=== PATIENT | male | born 1950 | race Caucasian/White ===

== ENCOUNTER 2016-11-10 06:34 | Emergency (ER) | payer OTHER ==
[~2016-11-10] VITALS: Ht 175.3 cm; Wt 5.9 kg
[~2016-11-10 06:34] MED LIST: AUGMENTIN 875-1 EACH PO; Amaryl; BACTRIM DS TAB1 EACH PO; Diovan; Ecotrin; Furosemide; GABAPENTIN100 M2 PO; GLUCOPHAGE850 M2 PO; GLUCOPHAGE850 MG PO; HUMALOG KW100 UNIT/1 SC; HYDROMORPHONE HC2 M1 PO; KEFLEX500 M1 PO; LANTUS SOL100 UNIT/1 SC; LANTUS SOLOS100 U/ML SC; LOVASTATIN40 MG PO; METFORMIN HCL850 M1 PO; METOPROLOL SUC100 M1 PO; METOPROLOL SUCC50 M1 PO; POLYTRIM O200 GTT/BO OPH; TOPROL XL100 M1 PO; VICODIN5-300 PO; [UNRECOGNIZED DRUG - OTHER]
[2016-11-10] MEDS ORDERED: LASIX20 M1 PO (07:18)
[2016-11-10] MEDS ORDERED: LOVASTATIN20 M1 PO (07:19)
--- NOTE | 2016-11-10 07:35 | ED AMS/SEIZURE/WEAK/DIZZY ---
History of Present Illness General Chief Complaint: Dizziness Stated Complaint: DIZZINESS, RODRIGUEZ Source: patient Exam Limitations: no limitations Vital Signs & Intake/Output Vital Signs & Intake/Output Vital Signs Date Time Temp Pulse Resp B/P B/P Pulse O2 O2 Flow FiO2 Mean Ox Delivery Rate 11/10 0820 98.1 68 18 122/67 98 Room Air 11/10 0700 96 Room Air 11/10 0654 97.2 66 16 145/72 96 Room Air Allergies Coded Allergies: cat dander (ITCHY, SNEEZING 08/14/15) shellfish derived (11/15/15) Reconcile Medications [Amaryl] (Reported) Amoxicillin/Potassium Clav (Augmentin 875-125 Tablet) 1 EACH TABLET 1 TAB PO BID cellulitis Take one this evening and then every 12 hours [Diovan] (Reported) [Ecotrin] (Reported) [Furosemide] (Reported) Furosemide (Lasix) 20 MG TABLET 1 TAB PO DAILY WATER (Reported) Gabapentin 100 MG CAPSULE 100 MG PO Q8 diabetic neuropathy Hydromorphone HCl 2 MG TABLET 2 MG PO Q6P PRN PAIN SCALE 7-10 Take it when you are in really severe pain Insulin Glargine,Hum.rec.anlog (Lantus Solostar) 100 UNIT/1 ML INSULN.PEN 20 UNIT SC QPM DIABETES Reason to Stop at ADM: ON LEVEMIR Insulin Lispro (Humalog Kwikpen U-100) 100 UNIT/1 ML INSULN.PEN 0 SC SEE SLIDING SCALE DIABETES (Reported) Before meal blood sugars: 80-150: no insulin 151-200: 4 units 201-250: 6 units 251-300: 8 units 301-350: 10 units 351-400: 12 units More than 400: 14 units and call your doctor Lovastatin 20 MG TABLET 1 TAB PO DAILY CHOLESTEROL (Reported) Metformin HCl 850 MG TABLET 1 TAB PO BID DIABETES (Reported) NOT GIVEN IN HOSPITAL Metoprolol Succ XL (Toprol XL) 100 MG TAB.ER.24H 1.5 TAB PO DAILY HEART HEALTH (Reported) [Mevaco] (Reported) Triage Note: 66 YEAR OLD MALE, STATES THAT SINCE SUNDAY HE HAS BEEN HAVING EPISODES OF DIZZINESS WHEN HE CHANGES POSITION, CAME IN THIS AM DUE TO HE WAS UNABLE TO LAY DOWN LAST NIGHT DUE TO THE DIZZINESS, STATES THAT HE FEELS OK THIS AM BUT LAST PM HE VOMITTED DUE TO THE DIZZINESS, STATES THAT HE HAD WATER IN HIS EAR 15 YEARS AGO AND HE HAD THE SAME PROBLEM, DENIES CP/SOB Triage Nurses Notes Reviewed? yes Onset: yesterday Duration: hour(s):, continues in ED, intermittent Severity: severe HPI: Patient presents for evaluation of severe spinning dizziness that began abruptly yesterday. Patient states he becomes diaphoretic and nauseous. He vomited at least once. He states he's had this once before many years ago. He denies any fever or cold symptoms or head trauma. He states he has had tinnitus for years without acute change. In addition he has had hearing loss without acute change. Past History Travel History Traveled to [place] past 21 day No Medical History Any Pertinent Medical History? 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 No Review of Systems Review of Systems Constitutional: Reports: no symptoms. EENTM: Reports: see HPI. Respiratory: Reports: no symptoms. Cardiovascular: Reports: no symptoms. GI: Reports: no symptoms. Genitourinary: Reports: no symptoms. Musculoskeletal: Reports: no symptoms. Skin: Reports: no symptoms. Neurological/Psychological: Reports: no symptoms. Hematologic/Endocrine: Reports: no symptoms. Immunologic/Allergic: Reports: no symptoms. All Other Systems: Reviewed and Negative Physical Exam Physical Exam General Appearance: see below Comments: Gen.: Well-nourished, well-developed, no acute respiratory distress. Head: Normocephalic, atraumatic. Eyes: Normal inspection bilaterally, no nystagmus, no Hallpike Ears: Normal inspection bilaterally Nose: Normal inspection Throat/mouth : Moist mucosa Neck: Supple, full range of motion, no goiter, no carotid bruits Heart: Regular rate and rhythm, no murmurs rubs or gallops Lungs: Clear to auscultation bilaterally with normal air entry Chest: Nontender Back: Normal range of motion Abdomen: Soft, nontender, nondistended, normal bowel sounds Extremities: Normal range of motion grossly, equal radial pulses, no cyanosis clubbing or edema Neurologic: Cranial nerves 2 through 12 intact, speech is clear Skin: warm and dry Psychiatric: Calm, cooperative, no apparent delusions or hallucinations Core Measures ACS in differential dx? No CVA/TIA Diagnosis: No Severe Sepsis Present: No Septic Shock Present: No Progress Differential Diagnosis: arrythmia, anemia, CVA/stroke, dehydration, hypoglycemia , hypoxia, labrynthitis, Meniere's disease Plan of Care: Orders Procedure Date/time Status MISTAKE 11/10 733 Active CBC WITHOUT DIFFERENTIAL 11/10 733 Complete BASIC METABOLIC PANEL 11/10 733 Complete EKG 11/10 733 Active Laboratory Tests 11/10/16 0747: Anion Gap 12, Estimated GFR > 60, BUN/Creatinine Ratio 33.3 H, Glucose 185 H, Calcium 9.3, CBC w Diff NO MAN DIFF REQ, RBC 4.95, MCV 94.2 H, MCH 30.8, RDW 14.2, MPV 8.8, Gran % 68.2, Lymphocytes % 23.5, Monocytes % 6.7, Eosinophils % 1.2, Basophils % 0.4, Absolute Granulocytes 7.4 H, Absolute Lymphocytes 2.5, Absolute Monocytes 0.7 H, Absolute Eosinophils 0.1, Absolute Basophils 0, PUBS MCHC 32.7 L Initial ED EKG: NSR, rate (73), LVH Prior EKG: unchanged Comments: No evidence of central vertigo. No evidence of systemic cause of vertigo. Symptoms consistent with peripheral vertigo. 11/10/2016 9:03:13 AM I have updated Manoj on his test results. He is amenable to treatment with meclizine and follow up with his primary care physician. Departure Departure Disposition: HOME OR SELF CARE Condition: Stable Clinical Impression Primary Impression: Vertigo Referrals: KAYLEN FOREMAN DO (PCP/Family) Additional Instructions: Meclizine as prescribed for your vertigo symptoms. Maintain a good fluid intake and strict diabetic diet (your blood glucose is a little elevated this morning). Continue your current medications. Follow-up with your primary care physician on Sunday for reevaluation. Return if any concerns or sudden worsening. Thank you for choosing the [facility] Emergency Department for your care. It was a pleasure to serve you today. Richard Andersen M.D. [facility] Departure Forms: Customer Survey General Discharge Information RELEASE- WORK
[2016-11-10 07:54] LABS: ABSOLUTE BASOPHIL COUNT 0 /CUMM (0.0-0.2); ABSOLUTE EOSINOPHIL COUNT 0.1 /CUMM (0.0-0.7); ABSOLUTE GRANULOCYTE CT 7.4 /CUMM (1.4-6.5); ABSOLUTE LYMPH COUNT 2.5 /CUMM (1.2-3.4); ABSOLUTE MONOCYTE COUNT 0.7 /CUMM (0.10-0.60); BASOPHIL % 0.4 % (0.0-2.0); EOSINOPHIL % 1.2 % (0-5); GRANULOCYTE % 68.2 % (42.2-75.2); HEMATOCRIT 46.6 % (42-52); MEAN CORPUSCULAR HGB 30.8 PG (27.0-31.0); MEAN CORPUSCULAR HGB CONC 32.7 G/DL (33.0-37.0); MEAN CORPUSCULAR VOLUME 94.2 FL (80.0-94.0); MEAN PLATELET VOLUME 8.8 FL (7.4-10.4); PLATELET COUNT 288 /CUMM (130-400); RBC DISTRIBUTION WIDTH 14.2 % (11.5-14.5); RED BLOOD CELL CT 4.95 /CUMM (4.70-6.10); WHITE BLOOD CELL COUNT 10.9 /CUMM (4.8-10.8)
[2016-11-10 08:20] VITALS: BP 122/67
[2016-11-10] MEDS ORDERED: MECLIZINE HCL25 MG PO (09:06)
== END 2016-11-10 09:09 ==
LOC: ERH 06:34
PROVIDERS: Emergency Medicine
DX: R42 Dizziness and giddiness (principal)
CPT/HCPCS: 93005; 93010

== ENCOUNTER 2017-10-25 09:52 | Emergency (ER) | payer OTHER ==
[~2017-10-25] VITALS: Ht 175.3 cm; Wt 88.0 kg
[~2017-10-25 09:52] MED LIST changes: +ASPIRIN81 M4 PO; +CIPRO250 M1 PO; +GABAPENTIN300 M2 PO; +JARDIANCE10 M1 PO; +JARDIANCE25 M1 PO; +LASIX20 M1 PO; +LOVASTATIN20 M1 PO; +MECLIZINE HCL25 MG PO; -TOPROL XL100 M1 PO; +TOPROL XL200 M1 PO; +VALSARTAN80 M1 PO; +ZOFRAN ODT4 M1 SL; -[UNRECOGNIZED DRUG - OTHER]
[2017-10-25 09:59] VITALS: BP 142/87
--- NOTE | 2017-10-25 11:38 | ED AMS/SEIZURE/WEAK/DIZZY ---
History of Present Illness General Chief Complaint: Animal/Insect Bite Stated Complaint: ?TICK BITE Source: patient Exam Limitations: no limitations Vital Signs & Intake/Output Vital Signs & Intake/Output Vital Signs Date Time Temp Pulse Resp B/P B/P Pulse O2 O2 Flow FiO2 Mean Ox Delivery Rate 10/25 0959 97.0 64 18 142/87 99 Room Air Allergies Coded Allergies: cat dander (ITCHY, SNEEZING 08/14/15) shellfish derived (11/15/15) Reconcile Medications Aspirin (Aspirin*) 81 MG TAB.CHEW 1 TAB PO DAILY HEART HEALTH (Reported) Empagliflozin (Jardiance) 25 MG TABLET 1 TAB PO DAILY DIABETES (Reported) Furosemide (Lasix) 20 MG TABLET 1 TAB PO DAILY WATER (Reported) Gabapentin 300 MG CAPSULE 1 CAP PO TID NEUROPATHY (Reported) Insulin Glargine,Hum.rec.anlog (Lantus Solostar) 100 UNIT/1 ML INSULN.PEN 20 UNIT SC QPM DIABETES Reason to Stop at ADM: ON LEVEMIR Insulin Lispro (Humalog Kwikpen U-100) 100 UNIT/1 ML INSULN.PEN 0 SC SEE SLIDING SCALE DIABETES (Reported) Before meal blood sugars: 80-150: no insulin 151-200: 4 units 201-250: 6 units 251-300: 8 units 301-350: 10 units 351-400: 12 units More than 400: 14 units and call your doctor Lovastatin 20 MG TABLET 1 TAB PO DAILY CHOLESTEROL (Reported) Meclizine HCl 25 MG TABLET 1 TAB PO TIDPRN dizziness Metformin HCl 850 MG TABLET 1 TAB PO BID DIABETES (Reported) NOT GIVEN IN HOSPITAL Metoprolol Succinate (Toprol XL) 200 MG TAB.ER.24H 1 TAB PO DAILY HEART ( Reported) Ondansetron (Zofran Odt) 4 MG TAB.RAPDIS 1 TAB SL TID nausea Scopolamine 1 MG/3 DAY PATCH.TD.3 1 PATCH TOP AD VERTIGO Valsartan 80 MG TABLET 1 TAB PO DAILY HTN (Reported) Triage Note: PT TO ER C/C ECCHYMOTIC APPEARING AREA WITH CENTRAL CLEARING TO LEFT FOREARM. PT WAS SEEN IN ER ON SUNDAY WITH VERTIGO S/S WHICH PERSIST DESPITE TAKING MECLIZINE. ?TICK BITE. Triage Nurses Notes Reviewed? yes Onset: Abrupt Duration: day(s): Timing: recent history Injury Environment: home No Modifying Factors: none HPI: 67-year-old male comes into the emergency room for further evaluation of bug bite to his left wrist. Patient reports she was seen here the other day for vertigo and still having some residual dizziness. Feel that the room spins around at times. Patient had a full evaluation with EKG blood work and CT scan of head. Patient reports that those symptoms have began on Sunday of last week which was 6 days ago. That night he noticed a bite on his left wrist. He denies pulling any tick off. Comes in for further evaluation primarily of the bite. There is no redness or discharge fever chills. (Rebel Forde) Past History Travel History Traveled to [place] past 21 day No Medical History Any Pertinent Medical History? 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 No (Rebel Forde) Review of Systems Review of Systems Constitutional: Reports: no symptoms. EENTM: Reports: no symptoms. Respiratory: Reports: no symptoms. Cardiovascular: Reports: no symptoms. GI: Reports: no symptoms. Genitourinary: Reports: no symptoms. Musculoskeletal: Reports: no symptoms. Skin: Reports: see HPI. Neurological/Psychological: Reports: no symptoms. Hematologic/Endocrine: Reports: no symptoms. Immunologic/Allergic: Reports: no symptoms. All Other Systems: Reviewed and Negative (Rebel Forde) Physical Exam Physical Exam General Appearance: well developed/nourished, alert, awake Head: atraumatic, normal appearance Eyes: Bilateral: normal appearance, EOMI. Ears, Nose, Throat: normal ENT inspection, hearing grossly normal Neck: normal inspection Respiratory: normal breath sounds, no respiratory distress Peripheral Pulses: 2+ radial (R) (Regular) Back: normal inspection Extremities: normal range of motion, small area of umbilication on left wrist Neurologic/Psych: awake, alert, oriented x 3 Skin: intact, normal color Core Measures ACS in differential dx? No CVA/TIA Diagnosis No Sepsis Present: No Sepsis Focused Exam Completed? No (Rebel Forde) Progress Differential Diagnosis: benign positional vertigo, CVA/stroke, encephalitis, tick bite, bug bite, salines, Plan of Care: Current Medications Sig/Aida Start time Last Medication Dose Stop Time Status Admin Scopolamine HBr 1 PAT ONE ONE 10/25 1145 UNVr (Trans Derm Scop) 10/25 1146 Initial ED EKG: none Comments: 10/25/2017 1:17:02 PM There is no visible tic that was removed with the patient reports. No signs of infection on the wrist. Patient has a small area with umbilication indicating potential bite. No antibiotics needed. Patient was prescribed scopolamine patch for persistent dizziness and told to maple products supervisor [id number] lipoflavanoid. Patient was told to follow-up with ear nose and throat doctor that was provided on previous visit. (Rebel Forde) Departure Departure Disposition: HOME OR SELF CARE Condition: Stable Clinical Impression Primary Impression: Bug bite Secondary Impressions: Vertigo Referrals: Lovely Zamudio DO (PCP/Family) Caden HARRIS,David Pereira Additional Instructions: Take scopolamine patch as prescribed. taxi driver supervisor [id number] LIOPFLAVANOID. Follow-up with ear nose and throat doctor. If you want to be tested for Lyme disease follow-up with your primary care doctor for a Lyme titer in 4 weeks. Please go over all results of today's visit with your primary care doctor. Contact your primary care doctor to let them know you were here in the emergency room. There may be nonspecific findings which may not be related to your visit today here in the emergency room but may require further evaluation and chronic monitoring by your primary care doctor. If you had a laceration today the chance of foreign body always remains. You should follow-up with your primary care doctor for recheck in 3-5 days for a wound check. If you had an x-ray done there is a chance that a fracture could have been missed on initial read and you should follow-up with your primary care doctor for repeat x-rays if symptoms persist. If your blood pressure was elevated here in the emergency room please have rechecked by our primary care doctor within the next 48. If you were prescribed a narcotic here in the emergency room or any type of controlled substances you're not allowed to drive while taking this medication or operate any type of heavy machinery. Narcotics can make you feel lightheaded dizziness nausea and can cause constipation. You may need to maple products supervisor a stool softener. Thank you for choosing [facility] emergency room. Please return to the emergency room immediately if you have any other concerns worsening of symptoms. Departure Forms: Customer Survey General Discharge Information Prescriptions: Current Visit Scripts Scopolamine 1 PATCH TOP AD #3 PATCH (Rebel Forde) PA/GROUP INSURANCE SPECIALIST Co-Sign Statement Statement: ED Attending supervision documentation- [X] I saw and evaluated the patient. I have also reviewed all the pertinent lab results and diagnostic results. I agree with the findings and the plan of care as documented in the PA's/GROUP INSURANCE SPECIALIST's documentation. [X] I have reviewed the ED Record and agree with the PA's/GROUP INSURANCE SPECIALIST's documentation. [] Additions or exceptions (if any) to the PAs/GROUP INSURANCE SPECIALIST's note and plan are summarized below: [] (Alexandra HARRIS,Jozef Koo)
[2017-10-25] MEDS ORDERED: SCOPOLAMINE1 EAC1 TOP (11:39)
== END 2017-10-25 12:15 ==
LOC: ERH 09:52
DX: S60.862A Insect bite (nonvenomous) of left wrist, initial encounter (principal); R42 Dizziness and giddiness; W57.XXXA Bitten or stung by nonvenomous insect and other nonvenomous arthropods, initial encounter; Y92.9 Unspecified place or not applicable; Y93.9 Activity, unspecified

== ENCOUNTER → 2018-02-12 | Day surgery (SDC) | payer OTHER ==
[~2018-02-12] VITALS: Ht 175.3 cm; Wt 90.7 kg
[~2018-02-12] MED LIST changes: +SCOPOLAMINE1 EAC1 TOP
--- NOTE | 2018-02-12 09:27 | Operative Report ---
Operative/Inv Procedure Report Surgery Date: 02/12/18 Name of Procedure: Cataract extraction lens implantation right eye Pre-Operative Diagnosis: Age-related cataract right eye 20/50 vision Post-Operative Diagnosis: Same Estimated Blood Loss: none Surgeon/Multi Share Program Coordinator: Sudeep HARRIS,Brian Hall Anesthesia: local monitored anesthesi Complications: None Operative/Procedure Note Note: The patient was brought to the operating room standard monitoring equipment was attached the patient was prepped and draped in the usual fashion for intraocular surgery. A lid speculum was placed to retract the lids. The case was begun by making a temporal incision with a 2.4 mm keratome. The eye was stabilized with a Romo ring during this incision. 1 mL of non-preserved lidocaine was introduced into the anterior chamber to provide anesthesia. The anterior chamber was then filled and deepened with viscoelastic. A curvilinear capsulorrhexis was achieved using a 30-gauge needle and is a cystotome and capsulorrhexis was finished using a Utrata forceps. A second or paracentesis incision was made temporally with a 1 mm MVR blade. The lens was then hydrodissected with balanced salt solution and found to be rotatable. The lens was emulsified using phacoemulsification and a modified four-quadrant cracking technique. The residual cortical material was removed using automated irrigation and aspiration and as much of the anterior capsular rim was cleaned as well as possible. The posterior capsule was cleaned first with the automated machine on a low setting and then manually with a Freddy squeegee. The capsular bag was deepened with viscoelastic. The lens a Envista MX60E 20.0 diopter placed into the bag under direct visualization and rotated so that the haptics were at 12 and 6:00. Viscoelastic was then removed from the eye by flushing it out and then by automated irrigation and aspiration. The eye was pressurized to a normal tone. 1/10 of a cc of cefuroxime solution was introduced into the anterior chamber to provide antibiotic prophylaxis. The wounds were sealed by hydrating the stroma adjacent to them and the eye was left at a proper tone after the wounds were checked and found not to be leaking. The lid speculum was removed from the orbit. Antibiotic and steroid drops were placed on the eye and then the eye was shielded. Monitoring equipment was removed from the patient and the patient was removed from the operative suite to the holding area. The patient tolerated the procedure well and will be seen in the office tomorrow.
== END ==
LOC: STS 02:59
DX: H25.9 Unspecified age-related cataract (principal); E11.40 Type 2 diabetes mellitus with diabetic neuropathy, unspecified; Z79.4 Long term (current) use of insulin; I10 Essential (primary) hypertension; I73.9 Peripheral vascular disease, unspecified
CPT/HCPCS: V2632

== ENCOUNTER → 2018-03-05 | Day surgery (SDC) | payer OTHER ==
--- NOTE | 2018-03-05 10:24 | Operative Report ---
Operative/Inv Procedure Report Surgery Date: 03/05/18 Name of Procedure: Cataract extraction lens implantation left eye Pre-Operative Diagnosis: Age related cataract left eye 20/40 vision 20/80 glare vision Post-Operative Diagnosis: Same Estimated Blood Loss: none Surgeon/Ambulatory Technologist: Sudeep HARRIS,Brian Hall Anesthesia: local monitored anesthesi Complications: None Operative/Procedure Note Note: The patient was brought to the operating room standard monitoring equipment was attached the patient was prepped and draped in the usual fashion for intraocular surgery. A lid speculum was placed to retract the lids. The case was begun by making a temporal incision with a 2.4 mm keratome. The eye was stabilized with a Romo ring during this incision. 1 mL of non-preserved lidocaine was introduced into the anterior chamber to provide anesthesia. The anterior chamber was then filled and deepened with viscoelastic. A curvilinear capsulorrhexis was achieved using a 30-gauge needle and is a cystotome and capsulorrhexis was finished using a Utrata forceps. A second or paracentesis incision was made temporally with a 1 mm MVR blade. The lens was then hydrodissected with balanced salt solution and found to be rotatable. The lens was emulsified using phacoemulsification and a modified four-quadrant cracking technique. The residual cortical material was removed using automated irrigation and aspiration and as much of the anterior capsular rim was cleaned as well as possible. The posterior capsule was cleaned first with the automated machine on a low setting and then manually with a Freddy squeegee. The capsular bag was deepened with viscoelastic. The lens a Technis 1 20.5 Diopter placed into the bag under direct visualization and rotated so that the haptics were at 12 and 6:00. Viscoelastic was then removed from the eye by flushing it out and then by automated irrigation and aspiration. The eye was pressurized to a normal tone. 1/10 of a cc of cefuroxime solution was introduced into the anterior chamber to provide antibiotic prophylaxis. The wounds were sealed by hydrating the stroma adjacent to them and the eye was left at a proper tone after the wounds were checked and found not to be leaking. The lid speculum was removed from the orbit. Antibiotic and steroid drops were placed on the eye and then the eye was shielded. Monitoring equipment was removed from the patient and the patient was removed from the operative suite to the holding area. The patient tolerated the procedure well and will be seen in the office tomorrow.
== END ==
LOC: STS 04:05
DX: H25.9 Unspecified age-related cataract (principal); E11.9 Type 2 diabetes mellitus without complications; Z79.84 Long term (current) use of oral hypoglycemic drugs; I10 Essential (primary) hypertension; Z95.0 Presence of cardiac pacemaker
CPT/HCPCS: J2250; V2632